=== PATIENT | male | born 1970 | race Caucasian/White ===

== ENCOUNTER 2021-05-13 22:03 | Emergency (ER) | payer BC ==
[2021-05-13 23:09] LABS: HEMOGLOBIN 15.1 gm/dl (14.0-17.5); RED BLOOD COUNT 5.21 M/UL (4.20-5.50); WHITE BLOOD COUNT 6.5 K/UL (4.5-11.0)
[2021-05-13 23:39] LABS: BUN/CREATININE RATIO 10 (0-10)
== END 2021-05-14 05:05 | disposition home or self-care (01) ==
LOC: ER1 22:03
PROVIDERS: Physician Assistant
DX: R07.89 Other chest pain (principal); R00.0 Tachycardia, unspecified; R00.2 Palpitations; Z88.2 Allergy status to sulfonamides; F17.290 Nicotine dependence, other tobacco product, uncomplicated; Z20.822 Contact with and (suspected) exposure to COVID-19
CPT/HCPCS: 71045; 80053; 82550; 82553; 83874; 84439; 84443; 84484; 85025; 93005; 99285; U0002

== ENCOUNTER → 2021-10-16 | Outpatient (CLI) | payer BC ==
[~2021-10-16] MED LIST: COLACE 100MG C100 MG PO; DULCOLAX5 MG PO
== END ==
LOC: RAD 12:23
DX: R10.9 Unspecified abdominal pain (principal); K59.00 Constipation, unspecified
CPT/HCPCS: 74018

== ENCOUNTER 2021-10-17 00:23 | Emergency (ER) | payer BC ==
[2021-10-17 01:34] LABS: HEMOGLOBIN 15.4 gm/dl (14.0-17.5); RED BLOOD COUNT 5.25 M/UL (4.20-5.50)
[2021-10-17 02:05] LABS: BUN/CREATININE RATIO 8 (0-10)
[2021-10-17] MEDS ORDERED: DULCOLAX5 MG PO (08:12)
[2021-10-17] MEDS ORDERED: COLACE 100MG C100 MG PO (08:12)
== END 2021-10-17 08:16 | disposition home or self-care (01) ==
LOC: ER1 00:23
PROVIDERS: Physician Assistant
DX: K59.00 Constipation, unspecified (principal); Z90.89 Acquired absence of other organs; Z88.2 Allergy status to sulfonamides
CPT/HCPCS: 80053; 81001; 82150; 82550; 82553; 83605; 83690; 84484; 85025; 87086; 99284; Q9967